=== PATIENT | male | born 1935 | race Caucasian/White ===

== ENCOUNTER → 2018-09-09 | Outpatient (CLI) | payer OTHER ==
[~2018-09-09] VITALS: Ht 177.8 cm; Wt 89.4 kg
[~2018-09-09] MED LIST: ATORVASTATIN CA40 MG PO; IRBESARTAN-HCT1 EAC1 PO; LANTUS SUBQ; NORVASC5 MG PO; NOVOLOG100 UNIT/1 SUBQ
--- NOTE | ~2018-09-09 | P ---
[facility] [place] [address] [place] [address] PROCEDURE REPORT Name: JOSE ROMAN Room #: [facility]#: [id number] Admission: 09/09/18 ������������������ Attend Phys: Dev Lebron MD Discharge: ������������������ Date of : 33 Report #: [id number] THIS REPORT FOR: //name// CC: Mukesh Lebron DATE OF SERVICE: 09/09/2018 OUTPATIENT UPPER ENDOSCOPY BRIEF HISTORY: The patient is an 83-year-old male known to me with a history of solid food dysphagia with recurrent symptoms. PREOPERATIVE DIAGNOSIS: Solid food dysphagia. POSTOPERATIVE DIAGNOSES: 1. Gastritis with erosions. 2. Patchy bulbar duodenitis. 3. Small hiatus hernia. 4. Grade A esophagitis. 5. Moderate Schatzki ring. MEDICATIONS: Deep sedation with propofol per anesthesia. SPECIMEN: Biopsies of gastritis. ESTIMATED BLOOD LOSS: 3 mL. PROCEDURE: EGD with biopsy and Mckeon dilation. FINDINGS: Prior to propofol sedation, procedure of upper endoscopy and dilation was discussed with the patient as well as potential risks and its complications. He indicates he understands and desires to proceed. DESCRIPTION OF PROCEDURE: With the patient in the left lateral decubitus position, the Olympus video endoscope was inserted in the cervical esophagus under direct vision without difficulty. Examination of this organ throughout its entire length revealed normal esophageal mucosa down into the distal esophagus. In the distal esophagus, several erosions were seen consistent with grade A erosive esophagitis. Intermittently, a moderate Schatzki ring was seen. There was also a small 2 cm sliding type hiatus hernia associated with the ring. Mucosa and hernia is unremarkable. There is no evidence of Glasgow mucosa. No mass lesions were seen. Overall, the distal esophagus had a benign appearance. The scope was advanced fully into the stomach, was examined on end view as well as retroflexed views. There was a pattern of gastritis or few [facility] [address] [place] [address] PROCEDURE REPORT Name: JOSE ROMAN [id number] Admission: 09/09/18 ������������������ Attend Phys: Dev Lebron MD Discharge: ������������������ Date of : 33 Report #: [id number] streaks of old blood in the stomach with active bleeding was not seen. No ulcers were seen. A significant amount of blood was not seen in the stomach. Upon retroflexion, no mass lesions were seen. The pylorus was normal. Examination of the duodenal bulb revealed a patchy bulbar duodenitis. The postbulbar duodenal sweep was inspected and noted to be unremarkable. At that point, the scope was slowly withdrawn and careful circumferential views confirmed the above findings. The patient tolerated the procedure well. Following procedure, he was dilated with passage of a 54-Estonian Mckeon dilator. There was no resistance. CONDITION OF THE PATIENT UPON DISCHARGE: Following the procedure, the patient was drowsy, arousable and will be discharged to home when fully ambulatory. INSTRUCTIONS TO THE PATIENT AND FAMILY AT THE TIME OF DISCHARGE: We will follow up on the pathology. Since he does have an esophagitis, we will have him start omeprazole 20 mg daily. If he does not have good control of his symptoms, he should return to the office for followup. If he does have good control of symptoms, after about 6-8 weeks, he can try to reduce the use of omeprazole to less than daily. He will return to see me on an as needed basis and to continue to follow up with Dr. Mukesh Renner. ��������������������������������������������� ���������������������������������������� By: ��������������������������������������������� 1002 2131 Dev Lebron MD /nt
--- NOTE | 2018-09-10 17:06 | PATH ---
[facility] [address] [place] [address] PATHOLOGY RPT PROCEDURE Name: PARISHEVAN Hillman Room #: REG CAROL Malone.#: [id number] ������������������ Admission: 09/09/18 ������������������ Date of : 33 Discharge: Report #: [id number] Path Case #: [id number] [facility] Accession Number: [id number] . 01 Material submitted: . stomach - BX GASTRITIS R/O H PYLORI . 01 Clinical history: . Pre-OP DX: Dysphagia Post-OP DX: Gastritis, esophagitis, esophageal ring . 02 Diagnosis: Gastric mucosa, gastritis R/O H. pylori, endoscopic biopsy: - Moderate reactive gastropathy. - Negative for intestinal metaplasia or atrophy. - Negative for Helicobacter pylori (properly controlled immunohistochemical stain performed). . (IUV:mitzi; 09/10/2018) QMS/09/10/2018 . 02 Electronically signed: . Stephanie Vee MD, Pathologist NPI- [id number] . 01 Gross description: . Received in formalin labeled "Parish Evan BX gastritis, rule out H. pylori," are 6 segments of canela soft tissue measuring 1.1 x 0.9 x 0.2 cm in aggregate dimensions and ranging from 0.1 to 0.4 cm in maximum dimension. The specimen is submitted entirely in cassette A1. (TSD; 09/09/2018) TOB/TOB . 02 Pathologist provided ICD-10: K31.9 . 02 CPT . 344100, M42834 Specimen Comment: A courtesy copy of this report has been sent to Specimen Comment: [phone], . Specimen Comment: Report sent to / DR PEREZ Performed at: 01 [facility] [address] [place] [address] [id number] MD Pierce Bernal MD Phone: [phone] Performed at: 02 [facility] [address] [place] [address] PATHOLOGY RPT PROCEDURE Name: EVAN ROMAN Room #: REG [facility]..#: [id number] ������������������ Admission: 09/09/18 ������������������ Date of : 33 Discharge: Report #: [id number] Path Case #: [id number] [address] [place], [place] [id number] MD Stephanie Vee MD Phone: [phone]
== END | disposition home or self-care (01) ==
LOC: GI 08:02
DX: K31.9 Disease of stomach and duodenum, unspecified (principal); K22.2 Esophageal obstruction; K20.9 Esophagitis, unspecified; K44.9 Diaphragmatic hernia without obstruction or gangrene; K29.80 Duodenitis without bleeding; I10 Essential (primary) hypertension; E78.5 Hyperlipidemia, unspecified; E11.9 Type 2 diabetes mellitus without complications; Z95.5 Presence of coronary angioplasty implant and graft; Z79.4 Long term (current) use of insulin; Z87.442 Personal history of urinary calculi; Z90.49 Acquired absence of other specified parts of digestive tract; Z98.890 Other specified postprocedural states; Z98.41 Cataract extraction status, right eye; Z98.42 Cataract extraction status, left eye; Z79.899 Other long term (current) drug therapy
CPT/HCPCS: 62110; 62900

== ENCOUNTER 2019-12-10 15:47 | Inpatient (IN) | payer OTHER ==
[~2019-12-10] VITALS: Ht 180.3 cm; Wt 90.5 kg
[2019-12-10 15:52] VITALS: BP 195/98
[2019-12-10 16:42] LABS: CALCIUM 9.2 mg/dL (8.5-10.1); CREATININE 1.1 mg/dL (0.7-1.3)
[2019-12-10 16:52] LABS: MAGNESIUM 2.1 mg/dL (1.8-2.4); TOTAL BILIRUBIN 1.4 mg/dL (0.2-1.0); TOTAL PROTEIN 7.3 g/dL (6.4-8.2); TROPONIN-I 0.26 ng/mL (<0.06)
[2019-12-10 17:31] LABS: HEMATOCRIT 44.3 % (42.0-52.0); MCH 30.1 pg (26.0-34.0); MCHC 33.9 g/dL (28.0-37.0); MCV 88.9 fL (80.0-100.0); RBC 4.98 mil/uL (4.50-6.00); WBC 5.9 thou/uL (4.0-11.0)
[2019-12-10 17:41] LABS: APTT 32.2 Seconds (24.5-32.8); PROTIME 10.4 Seconds (9.3-11.4)
[2019-12-10 17:47] VITALS: BP 176/88
[2019-12-10 18:03] VITALS: BP 171/87
[2019-12-10 18:15] VITALS: BP 182/99
[2019-12-10 18:22] LABS: ABSOLUTE NEUTROPHILS 4.2 thou/uL (1.4-8.2); ANISOCYTOSIS 1+; LARGE PLATELETS OCCASIONAL; POLYCHROMASIA OCCASIONAL
[2019-12-10 18:23] LABS: PLATELET COUNT 89 thou/uL (150-400)
[2019-12-11 00:27] VITALS: BP 181/91
--- NOTE | 2019-12-11 02:54 | NUR ---
PATIENT ASSESSED AND IS ALERT X 4. SKIN WARM AND DRY. DENIES ANY PAIN OR CHEST PAIN. NO SOA STATED. RESP EVEN AND UNLABORED. IV SITE IN RIGHT AC FLUSHES WELL. NEW FLUIDS STARTED PER ORDERS. HS MEDS GIVEN. WAS UPSET THAT NO ONE CAME IN HIS ROOM. AI WAS THERE AROUND 1999 TO ASSESSE HIM. SEEM FORGETFUL AT TIMES THIS SHIFT. VOIDS PER URINAL. NO SKIN ISSUES. DOES COMPLAIN OF VERTIGO WHEN HE STANDS TO VOID. NEEDS 1 PERSON ASSIST TO VOID. BS 231 RECEIVED 15 UNITS ORDERED. RIGHT AC SITE IS HEALTHY LOOKING. TAKING HEART HEALTHY DIET WELL. NEEDS TO REMEMBER LIKE CALL LIGHT FOR HELP. CONT PLAN OF CARE. DENIES ANY PAIN. LUNGS CTA.
--- NOTE | 2019-12-11 03:56 | NUR ---
PATIENT COMPLAINING OF RIGHT SHOULDER PAIN. NO CHEST PAIN STATED. HE THINKS IT FROM KEEPING HIS ARM STRAIGHT FOR THE IV. MORPHINE GIVEN.
[2019-12-11 04:45] VITALS: BP 122/66
[2019-12-11 07:36] VITALS: BP 133/63
--- NOTE | 2019-12-11 07:53 | NUR ---
PATIENT RESTING AND IS PAIN FREE. AT 0345 PATIENT COMPLAINING OF RIGHT SHOULDER PAIN. THEN ABOUT 0505 PATIENT HAVING CHEST PAIN. 2 NITRO GIVEN THEN CHEST PAIN RESIDED. FEELING BETTER NOW. THEN ABOUT 0542 CHEST PAIN STARTED AGAIN, SKIN WARM AND DRY. NO CHANGE IN TELE. STILL NSR. HAD 3 NITRO THEN PAIN WENT AWAY. SLEEPING AND THEN 0656 CHEST PAIN STARTED AGAIN AND RECEIVED 3 NITROS, 1ST 0656, 2ND 0701, 3RD 0706. STILL HAVING PAIN RATING ABOUT A 2-3. GAVE REPORT TO DAY RN AND AT 0745 PAIN HAS GONE COMPLETELY AWAY. FEELING BETTER NOW. CONT PLAN OF CARE.
--- NOTE | 2019-12-11 10:25 | EKG ---
[facility] [place] [address] [address] [place] [address] ELECTROCARDIOGRAM REPORT Name: JOSE ROMAN Room #: 203-P ADM IN M.R.#: [id number] Admission: 12/10/19 Attend Phys: Bronson Cortez MD Discharge: Date of : 33 Report #: [id number] THIS REPORT FOR: cc: Mukesh Renner MD, David A. MD Lundgren,Michael Clark MD [facility] ~ THIS REPORT FOR: //name// [facility] ED Test Date: 2019-12-10 Test Time: 15:55:41 Pat Name: JOSE ROMAN Department: Room: Formerly named [facility] Gender: M Application Systems Architect: BRICE : 1935 Requested By: Bull Sneed Order Number: [id number] MD: Michael López Measurements Intervals [place] Rate: 82 P: -12 RI: 144 QRS: 18 QRSD: 83 T: 126 QT: 322 QTc: 376 Interpretive Statements Sinus rhythm Atrial premature complex Nonspecific ST and T wave abnormality Compared to ECG 11/13/2000 09:26:38 Atrial premature complex(es) now present Sinus bradycardia no longer present nonspecific change in the ST and T wave segments Electronically Signed On 12-11-2019 10:24:54 CDT by Michael López [email or web address] <ELECTRONICALLY SIGNED> By: Michael López MD, FACC 12/11/19 1024 1555 1555 Michael López MD, FAC /EPI
--- NOTE | 2019-12-11 10:33 | EKG ---
[facility] [place] [address] [place] [address] ELECTROCARDIOGRAM REPORT Name: JOSE ROMAN Room #: 203- ADM IN M.R.#: [id number] Admission: 12/10/19 Attend Phys: Bronson Cortez MD Discharge: Date of : 33 Report #: [id number] THIS REPORT FOR: cc: Mukesh Renner MD, David A. MD Lundgren,Michael Clark MD [facility] ~ THIS REPORT FOR: //name// [facility] Test Date: 2019-12-11 Test Time: 09:14:11 Pat Name: JOSE ROMAN Department: Room: 203 Gender: M Last Chalker: ALESSANDRA : 1935 Requested By: Taiwo Abraham Order Number: [id number] MD: Michael López Measurements Intervals [place] Rate: 75 P: 1 KS: 157 QRS: 45 QRSD: 80 T: 110 QT: 388 QTc: 434 Interpretive Statements Sinus rhythm Borderline repolarization abnormality Poor R wave progression Compared to ECG 12/10/2019 15:55:41 No significant change was found Electronically Signed On 12-11-2019 10:33:05 CDT by Michael López [email or web address] <ELECTRONICALLY SIGNED> By: Michael López MD, [facility] 12/11/19 1033 0914 Michael López MD, [facility] /EPI
--- NOTE | 2019-12-11 12:34 | CATHLAB ---
[facility] [place] [address] [place] [address] INVASIVE PROCEDURE REPORT Name: JOSE ROMAN Room #: 203-P ADM IN M.R.#: [id number] Admission: 12/10/19 Attend Phys: Bronson Cortez MD Discharge: Date of : 33 Report #: [id number] THIS REPORT FOR: cc: Mukesh Renner MD, David A. MD Lundgren, Craig H. MD [facility] ~ APPROVED REPORT Study performed: 12/11/2019 10:30:34 Patient Details Patient Status: Out-Patient Room #: The patient is a 84 year-old male Event Personnel Michael López Repairer Cylinder Heads, Jeronimo Upton RN, Darshana Tomlinson, Tara Dockery RTR Monitor Procedures Performed Art Access - R femoral artery* Left Heart Cath w/or w/o Coronaries 3331026 [facility] Place w/wo Plasty Single CIRC 552089 67849 Initial Mod Sed Same Phys/QHP Gr5y 401226 08258 Mod Sed Same Phys/QHP Ea 931414 Hemostasis w/ Mynx Indication Non-STEMI (>6 hrs to = 12 hrs), Chest pain Procedure Narrative The patient was brought urgently to the Cardiac Catheterization Laboratory and was prepped and draped in a sterile manner. The Right Groin^ was infiltrated with 1% Lidocaine subcutaneous anesthesia. A PINNACLE 6FR Sheath #[id number] sheath was inserted into the RFA^. Coronary angiography was performed using coronary diagnostic catheters. The right coronary system was accessed and visualized with a JR4 catheter. The left coronary system was accessed and visualized with a JL4 catheter. The left ventricle was accessed and visualized with a PIGTAIL catheter. Left ventriculogram was performed in 30 degree projection. Closure device was deployed with a 6 Fr MYNXGRIP 6/7F #[id number]. The patient tolerated the procedure well and there were no complications associated with the procedure. There was no hematoma. Intraoperative Conscious Sedation Sedation start time: 105 Case end Time: [facility] [address] [place] [address] INVASIVE PROCEDURE REPORT Name: JESSIEJOSE Hillman Room #: 203-P [facility] IN [facility].#: [id number] Admission: 12/10/19 Attend Phys: Bronson Cortez MD Discharge: Date of : 33 Report #: [id number] 1202 Fentanyl 50 mcg Versed 1.5 mg Fluoro Time: 8.23 minutes Dose: DAP 7745.80 cGycm2 955 mGy Contrast Type and Amount: Omnipaque 235 ml Coronary Angiography The patient's coronary anatomy is right dominant. Diagnostic Cath Left Main Short, normal left main LAD Mild to moderate proximal LAD plaquing (30-40%) Previously placed mid LAD stent with mild intrastent plaquing Circumflex Nondominant but large circumflex comprised of a single bifurcating marginal branch OM1 OM1 exhibited a 99% mid vessel stenosis. Moderate 40-50% distal plaquing Right Coronary Large, dominant right coronary with minimal scattered plaquing R PDA Mild 10-20% mid PDA plaquing RPLV Large posterolateral branch with mild proximal plaquing Left Ventriculography The left ventricle is normal in size with normal contractility. The left ventricular ejection fraction is estimated to be 60-65%. Left ventricular wall motion abnormalities are not present. There is no mitral insufficiency. Hemodynamics The aortic pressure is 135/51 mmHg with a mean of 83 mmHg. The left ventricular pressure is 134/2 mmHg with a mean of mmHg. The left ventricular end diastolic pressure is 10 mmHg. PCI Technique Lesion Anticoagulation was achieved with Angiomax. Patient was preloaded with Plavix. Percutaneous coronary intervention was performed on the mid first marginal branch segment. The lesion stenosis prior to intervention was 99% with ARY 2 flow. A LAUNCHER 6FR EBU 3.5 #[id number] Guide Catheter was used to engage the ostium. A Luge Wire .014 x 182CM #[id number] Interventional Guidewire was used to cross the lesion. BALLOON DILATION A Balloon catheter Moprisephora RX 2.5 x 15 #[id number] was inserted and [facility] [address] [place] [address] INVASIVE PROCEDURE REPORT Name: JESSIEJOSE Hillman Room #: 203-P [facility] IN M.R.#: [id number] Admission: 12/10/19 Attend Phys: Bronson Cortez MD Discharge: Date of : 33 Report #: [id number] inflated up to 8.00atm for 22seconds. Repeat angiography revealed the following post-dilatation results: Moderate residual stenosis. STENT DEPLOYMENT A drug-eluting stent RESOLUTE SAMY RX 3.0 X 15 #[id number] was inserted and inflated up to 12.00atm for 30seconds. POST STENT DEPLOYMENT BALLOON DILATION A Balloon catheter TREK NC RX 3.0 X 12 #[id number] was inserted and inflated up to 18.00atm for 32seconds. Final angiography reveals 0 % stenosis with ARY 3 flow. Conclusion 1. Normal global and regional left ventricular systolic function. Ejection fraction 65% 2. Normal left main 3. Mild proximal and mid LAD plaquing. Patent, previously placed mid LAD stents 4. Critical first marginal branch stenosis stented with a 3.0 x 15mm Resolute stent, post dilated to 3.1mm 5. Dominant right coronary with mild scattered plaquing Recommendations Daily ASA with Plavix for at least one year Cardiac Rehabilitation Referral <ELECTRONICALLY SIGNED> By: Michael López MD, [facility] 12/11/19 1233 1233 1233 Michael López MD, FACC /INF
[2019-12-11 12:53] VITALS: BP 137/66
[2019-12-11 16:00] VITALS: BP 145/63
--- NOTE | 2019-12-11 18:04 | NUR ---
ASSUMED PATIENT CARE AT 0700. WENT TO [facility] AT 1030 AND BACK TO UNIT 1215. RIGHT GROIN NO HEMOTOMA. NO PAIM. VSS. PATIENT GETTING UP AT 1800. DENIES CHEST PAIN. PROGRESSING TOWARDS POC GOALS.
[2019-12-11 19:50] VITALS: BP 153/74
[2019-12-12 00:33] VITALS: BP 164/81
[2019-12-12 04:26] VITALS: BP 148/70
[2019-12-12 04:52] LABS: ALBUMIN 3.4 g/dL (3.4-5.0); CALCIUM 8.8 mg/dL (8.5-10.1); CREATININE 0.9 mg/dL (0.7-1.3); POTASSIUM 3.2 mmol/L (3.5-5.1); TOTAL BILIRUBIN 2.4 mg/dL (0.2-1.0); TOTAL PROTEIN 6.5 g/dL (6.4-8.2)
[2019-12-12 04:55] LABS: TROPONIN-I 1.05 ng/mL (<0.06)
--- NOTE | 2019-12-12 06:10 | NUR ---
Assumed pt care at 2330. Pt is alert and oriented. Pt is stable. Right groin site intact. Pt is stable through the night. Denies any pain. Scheduled morning meds administered to pt. Continue to monitor. No further needs at this time.
[2019-12-12 07:20] VITALS: BP 165/81
[2019-12-12] MEDS ORDERED: ASPIR 8181 MG PO (07:48)
[2019-12-12] MEDS ORDERED: LIPITOR40 MG PO (07:48)
[2019-12-12] MEDS ORDERED: CLOPIDOGREL75 MG PO (07:48)
[2019-12-12] MEDS ORDERED: METOPROLOL SUCC25 M1 PO (07:48)
[2019-12-12 11:10] VITALS: BP 135/60
--- NOTE | 2019-12-12 11:35 | NUR ---
Chart reviewed and case discussed with the care team. Dc home anticipated today with cardiology clearance. Vacation Guide spoke with the pt and his to screen for possible hh referral. The pt has a cardiac cath with stent placement yesterday. Pt is A&ox4 and indicates that he is indep, active and drives. His pcp is Dr. Mukesh Renner. He lives with his spouse in a assisted community indep apt [facility] He does not intend to be homebound at in today and he is up ad juli in his room. is supportive and able to assist with adl's and drive if needed. No cm interventions indicated. Care team updated.
--- NOTE | 2019-12-12 11:47 | 2DMMODE ---
[facility] [address] [place] [address] 2 D/M-MODE ECHOCARDIOGRAM Name: JOSE ROMAN Room #: 203-P ADM IN M.R.#: [id number] Admission: 12/10/19 Attend Phys: Bronson Cortez MD Discharge: Date of : 33 Report #: [id number] THIS REPORT FOR: cc: Mukesh Renner MD, David A. MD Lammoglia, Francisco J. MD ~ APPROVED REPORT Study performed: 12/12/2019 08:39:39 EXAM: Comprehensive 2D, Doppler, and color-flow Echocardiogram Patient Location: Bedside Room #: 203 Status: routine BSA: 2.08 HR: 74 bpm BP: 190/80 mmHg Rhythm: NSR Other Information Study Quality: Fair Indications Diabetes CAD Elevated Troponin Chest Pain Hypertension/HDD 2D Dimensions IVSd: 10.17 (7-11mm) LVOT Diam: 22.87 (18-24mm) LVDd: 49.57 mm PWd: 9.57 (7-11mm) Ascending Ao: 33.26 (22-36mm) LVDs: 33.00 (25-40mm) Aortic Root: 39.37 mm IVC: 17.00 mm Aortic Valve AoV Peak Reece.: 1.41 m/s AO Peak Gr.: 7.95 mmHg LVOT Max P.72 mmHg LVOT Max V: 1.09 m/s TESSIE Vmax: 3.16 cm2 Mitral Valve E/A Ratio: 0.8 [facility] [address] [place] [address] 2 D/M-MODE ECHOCARDIOGRAM Name: JOSE ROMAN Room #: 203-P ADM IN .R.#: [id number] Admission: 12/10/19 Attend Phys: Bronson Cortez MD Discharge: Date of : 33 Report #: [id number] MV Decel. Time: 252.89 ms MV E Max Reece.: 0.99 m/s MV A Reece.: 1.31 m/s MV PHT: 73.34 ms IVRT: 106.11 ms Pulmonary Valve PV Peak Reece.: 1.07 m/s PV Peak Gr.: 4.56 mmHg Pulmonary Vein P Vein S: 0.40 m/s P Vein A: 0.28 m/s P Vein D: 0.29 m/s P Vein A Dur.: 115.3 msec P Vein S/D Ratio: 1.38 Left Ventricle The left ventricle is normal size. There is normal LV segmental wall motion. There is normal left ventricular wall thickness. Left ventricular systolic function is normal. The left ventricular ejection fraction is within the normal range. LVEF is 55-60%. Grade I - abnormal relaxation pattern. Right Ventricle The right ventricle is normal size. The right ventricular systolic function is normal. Atria The left atrium size is normal. The right atrium size is normal. Aortic Valve The aortic valve is normal in structure. No aortic regurgitation is present. There is no aortic valvular stenosis. Mitral Valve The mitral valve is normal in structure. There is no mitral valve regurgitation noted. No evidence of mitral valve stenosis. Tricuspid Valve The tricuspid valve is normal in structure. There is no tricuspid valve regurgitation noted. Pulmonic Valve The pulmonary valve is normal in structure. There is no pulmonic valvular regurgitation. Great Vess[facility] [address] [place] [address] 2 D/M-MODE ECHOCARDIOGRAM Name: JESSIEJOSE Hillman Room #: 203-P [facility] IN ..#: [id number] Admission: 12/10/19 Attend Phys: Bronson Cortez MD Discharge: Date of : 33 Report #: [id number] The aortic root is normal in size. IVC is normal in size and collapses >50% with inspiration. Pericardium There is no pericardial effusion. <Conclusion> The left ventricle is normal size. LVEF is 55-60%. The aortic valve is normal in structure. The mitral valve is normal in structure. The tricuspid valve is normal in structure. The pulmonary valve is normal in structure. There is no pericardial effusion. <ELECTRONICALLY SIGNED> By: Vidal Groves MD 12/12/19 1147 1147 1147 Vidal Groves MD /INF
[2019-12-12] MEDS ORDERED: WELLBUTRIN SR150 MG PO (13:14)
[2019-12-12 13:26] VITALS: BP 135/60
--- NOTE | 2019-12-12 14:16 | NUR ---
ASSUMED CARE AT SHIFT CHANGE, ALERT AND ORIENTED X4. VSS AND AFEBRILE. DISCHARGE AND MEDICATION INSTRUCTIOND GIVEN TO PATIENT AND SPOUSE. PATIENT DISCHARGED HOME.
--- NOTE | 2019-12-13 16:00 | EKG ---
[facility] [place] [address] [place] [address] ELECTROCARDIOGRAM REPORT Name: JOSE ROMAN Room #: 203- DIS IN M.R.#: [id number] Admission: 12/10/19 Attend Phys: Bronson Cortez MD Discharge: 12/12/19 Date of : 33 Report #: [id number] THIS REPORT FOR: cc: Mukesh Renner MD, David A. MD Couchonnal, Luis F. MD ~ THIS REPORT FOR: //name// [facility] Test Date: 2019-12-11 Test Time: 13:11:40 Pat Name: JOSE ROMAN Department: Room: 203 Gender: M Date Puller: ALESSANDRA : 1935 Requested By: Michael López Order Number: [id number] MD: Taiwo Abraham Measurements Intervals [place] Rate: 71 P: -22 WI: 149 QRS: 32 QRSD: 85 T: 87 QT: 417 QTc: 454 Interpretive Statements Sinus rhythm Atrial premature complex Low voltage, precordial leads Nonspecific T abnormalities, lateral leads Baseline wander in lead(s) V2 Compared to ECG 12/11/2019 09:14:11 Atrial premature complex(es) now present Low QRS voltage now present T-wave abnormality now present Poor R-wave progression no longer present Electronically Signed On 12-13-2019 16:00:38 CDT by Taiwo Abraham [email or web address] <ELECTRONICALLY SIGNED> By: Taiwo Abraham MD 12/13/19 1600 10 10 Taiwo Abraham MD /EPI
--- NOTE | 2019-12-13 16:02 | EKG ---
[facility] [place] [address] [place] [address] ELECTROCARDIOGRAM REPORT Name: JOSE ROMAN Room #: 203-P DIS IN M.R.#: [id number] Admission: 12/10/19 Attend Phys: Bronson Cortez MD Discharge: 12/12/19 Date of : 33 Report #: [id number] THIS REPORT FOR: cc: Mukesh Renner MD, David A. MD Couchonnal, Luis F. MD ~ THIS REPORT FOR: //name// [facility] Test Date: 2019-12-12 Test Time: 07:10:50 Pat Name: JOSE ROMAN Department: Room: 203 Gender: M Consumer Education Specialist: ALESSADNRA : 1935 Requested By: Michael López Order Number: [id number] MD: Taiwo Abraham Measurements Intervals [place] Rate: 68 P: 22 NE: 145 QRS: 23 QRSD: 86 T: 118 QT: 389 QTc: 414 Interpretive Statements Sinus rhythm Anteroseptal infarct, age indeterminate Compared to ECG 12/11/2019 13:11:40 Myocardial infarct finding now present Atrial premature complex(es) no longer present T-wave abnormality no longer present Electronically Signed On 12-13-2019 16:02:10 CDT by Taiwo Abraham [email or web address] <ELECTRONICALLY SIGNED> By: Taiwo Abraham MD 12/13/19 1602 9 Taiwo Abraham MD /EPI
== END 2019-12-12 14:00 | disposition home or self-care (01) | DRG 247 ==
LOC: ER 15:47 → 2N 18:10
PROVIDERS: Emergency Medicine; Internal Medicine; ADMIT Internal Medicine; ATTEND Internal Medicine
PROC: B2111ZZ Fluoroscopy of Multiple Coronary Arteries using Low Osmolar Contrast (ICD-10-PCS; principal; 2019-12-11)
PROC: 4A023N7 Measurement of Cardiac Sampling and Pressure, Left Heart, Percutaneous Approach (ICD-10-PCS; principal; 2019-12-11)
PROC: B2151ZZ Fluoroscopy of Left Heart using Low Osmolar Contrast (ICD-10-PCS; principal; 2019-12-11)
PROC: 027034Z Dilation of Coronary Artery, One Artery with Drug-eluting Intraluminal Device, Percutaneous Approach (ICD-10-PCS; principal; 2019-12-11)
DX: I21.4 Non-ST elevation (NSTEMI) myocardial infarction (principal); E11.9 Type 2 diabetes mellitus without complications; I10 Essential (primary) hypertension; E78.5 Hyperlipidemia, unspecified; E78.00 Pure hypercholesterolemia, unspecified; M54.5 Low back pain; G47.33 Obstructive sleep apnea (adult) (pediatric); D69.6 Thrombocytopenia, unspecified; E87.6 Hypokalemia; G47.00 Insomnia, unspecified; N40.0 Benign prostatic hyperplasia without lower urinary tract symptoms; K59.00 Constipation, unspecified; I25.110 Atherosclerotic heart disease of native coronary artery with unstable angina pectoris; K29.70 Gastritis, unspecified, without bleeding; K25.9 Gastric ulcer, unspecified as acute or chronic, without hemorrhage or perforation; K29.80 Duodenitis without bleeding; K44.9 Diaphragmatic hernia without obstruction or gangrene; K20.9 Esophagitis, unspecified; K22.2 Esophageal obstruction; Z90.49 Acquired absence of other specified parts of digestive tract; Z95.5 Presence of coronary angioplasty implant and graft; Z79.4 Long term (current) use of insulin; Z87.442 Personal history of urinary calculi; Z79.899 Other long term (current) drug therapy
CPT/HCPCS: 10081

== ENCOUNTER → 2020-01-12 | Outpatient (CLI) | payer OTHER ==
[~2020-01-12] MED LIST changes: +ASPIR 8181 MG PO; +CLOPIDOGREL75 MG PO; +LIPITOR40 MG PO; +METOPROLOL SUCC25 M1 PO; +WELLBUTRIN SR150 MG PO
== END ==
LOC: SJCVC 15:21
PROVIDERS: ATTEND Internal Medicine Cardiovascular Disease
DX: I25.10 Atherosclerotic heart disease of native coronary artery without angina pectoris (principal); I10 Essential (primary) hypertension; E78.00 Pure hypercholesterolemia, unspecified; R94.31 Abnormal electrocardiogram [ECG] [EKG]; I25.5 Ischemic cardiomyopathy; E11.9 Type 2 diabetes mellitus without complications; G47.33 Obstructive sleep apnea (adult) (pediatric); Z79.4 Long term (current) use of insulin; Z79.899 Other long term (current) drug therapy

== ENCOUNTER 2020-01-31 06:39 | Emergency (ER) | payer OTHER ==
[~2020-01-31] VITALS: Ht 177.8 cm; Wt 87.5 kg
[2020-01-31 08:06] LABS: ANION GAP 9 mmol/L (7-16); BUN 12 mg/dL (7-18); CALCIUM 8.7 mg/dL (8.5-10.1); CHLORIDE 106 mmol/L (98-107); CO2 26 mmol/L (21-32); CREATININE 0.8 mg/dL (0.7-1.3); GLUCOSE 143 mg/dL (74-106); POTASSIUM 3.7 mmol/L (3.5-5.1); SODIUM 141 mmol/L (136-145)
[2020-01-31 08:16] LABS: ALBUMIN 3.9 g/dL (3.4-5.0); SGOT 19 U/L (15-37); SGPT 16 U/L (30-65); TOTAL BILIRUBIN 1.2 mg/dL (0.2-1.0); TROPONIN-I <0.06 ng/mL (<0.06)
[2020-01-31 08:20] LABS: HEMATOCRIT 40.6 % (42.0-52.0); HEMOGLOBIN 13.7 gm/dL (14.0-18.0); MCH 30.2 pg (26.0-34.0); MCHC 33.8 g/dL (28.0-37.0); MCV 89.3 fL (80.0-100.0); RBC 4.54 mil/uL (4.50-6.00); WBC 4.9 thou/uL (4.0-11.0)
[2020-01-31 09:54] VITALS: BP 177/71
[2020-01-31 10:45] LABS: ABSOLUTE NEUTROPHILS 3.1 thou/uL (1.4-8.2); LARGE PLATELETS OCCASIONAL; PLATELET COUNT 102 thou/uL (150-400); PLATELET ESTIMATE SLIGHTLY DECREASED
--- NOTE | 2020-01-31 10:55 | EKG ---
[facility] [place] [address] ELECTROCARDIOGRAM REPORT Name: JOSE ROMAN Room #: REG [facility]#: [id number] Admission: 01/31/20 Attend Phys: Discharge: Date of : 33 Report #: [id number] THIS REPORT FOR: cc: Mukesh Renner MD, David A. MD Santiago, Patrick MD [facility] ~ THIS REPORT FOR: //name// [facility] ED Test Date: 2020-01-31 Test Time: 07:42:23 Pat Name: JOSE ROMAN Department: Room: Gender: M Quality Assurance Qa Lab Analyst: : 1935 Requested By: Bull Sneed Order Number: [id number] MD: Gibran Trevino Measurements Intervals [place] Rate: 71 P: 39 W[place]: 160 QRS: 30 QRSD: 89 T: 56 QT: 406 QTc: 442 Interpretive Statements Sinus rhythm Borderline T abnormalities, lateral leads Compared to ECG 12/12/2019 07:10:50 T-wave abnormality now present Myocardial infarct finding no longer present Electronically Signed On 01-31-2020 10:55:30 CDT by Gibran Trevino [email or web address] <ELECTRONICALLY SIGNED> By: Gibran Trevino MD, FACC 01/31/20 1055 0742 0742 Gibran Trevino MD, [facility] /EPI
== END 2020-01-31 09:55 | disposition home or self-care (01) ==
LOC: ER 06:39
PROVIDERS: Emergency Medicine
DX: R06.02 Shortness of breath (principal); I25.10 Atherosclerotic heart disease of native coronary artery without angina pectoris; I10 Essential (primary) hypertension; E11.9 Type 2 diabetes mellitus without complications; E78.5 Hyperlipidemia, unspecified; Z95.1 Presence of aortocoronary bypass graft; Z90.49 Acquired absence of other specified parts of digestive tract; Z79.01 Long term (current) use of anticoagulants; Z79.82 Long term (current) use of aspirin; Z79.4 Long term (current) use of insulin; Z79.899 Other long term (current) drug therapy

== ENCOUNTER 2020-02-21 07:47 | Emergency (ER) | payer OTHER ==
[~2020-02-21] VITALS: Ht 177.8 cm; Wt 93.0 kg
[2020-02-21] MEDS ORDERED: PRASUGREL HCL10 MG PO (08:18)
[2020-02-21] MEDS ORDERED: ALPRAZOLAM0.5 M1 PO (08:18)
[2020-02-21] MEDS ORDERED: BUPROPION XL150 MG PO (08:18)
[2020-02-21] MEDS ORDERED: HYDROCHLOROTH12.5 M2 PO (08:19)
[2020-02-21] MEDS ORDERED: LIPITOR 40 MG T40 M1 PO (08:19)
[2020-02-21] MEDS ORDERED: OMEPRAZOLE 20 M20 M1 PO (08:19)
[2020-02-21] MEDS ORDERED: TAMSULOSIN HCL0.4 MG PO (08:19)
[2020-02-21 10:56] VITALS: BP 190/87
--- NOTE | 2020-02-21 14:30 | EKG ---
[facility] [place] [address] ELECTROCARDIOGRAM REPORT Name: JOSE ROMAN Room #: DEP [facility]#: [id number] Admission: 02/21/20 Attend Phys: Discharge: 02/21/20 Date of : 31 Report #: [id number] THIS REPORT FOR: cc: Mukesh Renner MD, David A. MD Santiago, Patrick MD [facility] ~ THIS REPORT FOR: //name// [facility] ED Test Date: 2020-02-21 Test Time: 10:23:43 Pat Name: JOSE ROMAN Department: Room: Gender: Road Mender: [facility] : 1935 Requested By: Edgardo Espinoza Order Number: [id number] MD: Gibran Trevino Measurements Intervals [place] Rate: 68 P: 40 CT: 161 QRS: 24 QRSD: 83 T: 63 QT: 394 QTc: 420 Interpretive Statements Sinus rhythm Atrial premature complex Compared to ECG 01/31/2020 07:42:23 Atrial premature complex(es) now present T-wave abnormality no longer present Electronically Signed On 02-21-2020 14:30:50 CDT by Gibran Trevino [email or web address] <ELECTRONICALLY SIGNED> By: Gibran Trevino MD, FACC 02/21/20 1430 1023 1023 Gibran Trevino MD, FACC /EPI
== END 2020-02-21 10:56 | disposition home or self-care (01) ==
LOC: ER 07:47
DX: F41.9 Anxiety disorder, unspecified (principal); F32.9 Major depressive disorder, single episode, unspecified; R06.02 Shortness of breath; I10 Essential (primary) hypertension; E11.9 Type 2 diabetes mellitus without complications; E78.5 Hyperlipidemia, unspecified; Z90.49 Acquired absence of other specified parts of digestive tract; Z79.899 Other long term (current) drug therapy; Z79.01 Long term (current) use of anticoagulants; Z79.4 Long term (current) use of insulin; Z79.82 Long term (current) use of aspirin

== ENCOUNTER → 2020-03-26 | Outpatient (CLI) | payer OTHER ==
[~2020-03-26] MED LIST changes: +ALPRAZOLAM0.5 M1 PO; +BUPROPION XL150 MG PO; +HYDROCHLOROTH12.5 M2 PO; +LIPITOR 40 MG T40 M1 PO; +OMEPRAZOLE 20 M20 M1 PO; +PLAVIX 75 MG TA75 MG PO; +PRASUGREL HCL10 MG PO; +SEROQUEL 25 MG25 MG PO; +TAMSULOSIN HCL0.4 MG PO; +TOPROL XL25 MG PO
== END ==
LOC: LAB 08:41
PROVIDERS: ATTEND Specialist
DX: Z01.812 Encounter for preprocedural laboratory examination (principal); Z20.828 Contact with and (suspected) exposure to other viral communicable diseases

== ENCOUNTER → 2020-03-28 | Outpatient (CLI) | payer OTHER ==
[~2020-03-28] VITALS: Ht 177.8 cm; Wt 90.7 kg
--- NOTE | 2020-03-28 17:27 | O ---
[facility] [place] [address] [place] [address] OPERATIVE REPORT Name: JOSE ROMAN Room #: REG [facility]#: [id number] Admission: 03/28/20 Attend Phys: Brice Cordero Discharge: Date of : 31 Report #: [id number] THIS REPORT FOR: cc: Mukesh Renner MD, David A. MD McElhinney, Christian C. MD ~ CC: Brice Renner DATE OF SERVICE: 03/28/2020 PROCEDURE PERFORMED: Upper endoscopy with esophageal dilation. HISTORY OF PRESENT ILLNESS: The patient is an 84-year-old male with a history of recurrent dysphagia, underwent an upper endoscopy with dilation by my partner, Dr. Lebron last August using a 54 Mckeon at the time. The patient had good results until recently now with recurrent dysphagia. DESCRIPTION OF PROCEDURE: The risks and benefits of the procedure were explained to the patient, those risks including but not limited to bleeding, perforation and the risk of sedation. He understood these risks and gave informed consent. Sedation was given using propofol per Anesthesia. Next, using a standard Olympus upper endoscope, the scope was placed in the patient's mouth and advanced under direct vision through the esophagus, stomach and into the second portion of the duodenum. The upper and mid esophagus was normal in appearance. In the distal esophagus at the GE junction, a mild Schatzki's ring was noted. The scope passed without any resistance. Upon entering the stomach, a small hiatal hernia was noted. Overall, the gastric mucosa was normal. The pylorus was normal and patent. The duodenal bulb, first and second portion were all normal. The scope was then brought back up into the patient's stomach and a Savary guidewire was inserted through the scope, leaving the guidewire in place as the scope was then withdrawn. Next, a 48-[place] Savary dilation of the esophagus was then performed without difficulty. The wire and dilator were removed. The scope was reintroduced into the patient's stomach. There was no evidence of mucosal tear after dilation. The scope was then withdrawn and the procedure terminated. The patient tolerated the procedure well. IMPRESSION: 1. Mild Schatzki's ring, status post dilation. 2. Small hiatal hernia. 3. Otherwise, normal upper endoscopy. RECOMMENDATIONS: 1. Observe the patient post-dilation. 2. Continue PPI therapy. [address] [address] OPERATIVE REPORT Name: JESSIEJOSE Rafy Room #: REG [facility]#: [id number] Admission: 03/28/20 Attend Phys: Brice Cordero Discharge: Date of : 31 Report #: [id number] Thank you for allowing me to participate in his care. <ELECTRONICALLY SIGNED> By: Brice Lind MD 03/28/20 1727 1056 1302 Brice Lind MD /shonna
== END | disposition home or self-care (01) ==
LOC: GI 08:04
PROVIDERS: ATTEND Specialist
DX: R13.10 Dysphagia, unspecified (principal); K22.2 Esophageal obstruction; K44.9 Diaphragmatic hernia without obstruction or gangrene; I10 Essential (primary) hypertension; E78.5 Hyperlipidemia, unspecified; E11.9 Type 2 diabetes mellitus without complications; Z98.890 Other specified postprocedural states; Z79.899 Other long term (current) drug therapy; Z79.4 Long term (current) use of insulin; Z87.442 Personal history of urinary calculi; Z90.49 Acquired absence of other specified parts of digestive tract
CPT/HCPCS: 62110; 62900

== ENCOUNTER → 2020-04-12 | Outpatient (CLI) | payer OTHER | LOC: LAB 10:52 | PROVIDERS: ATTEND Family Medicine | DX: Z20.828 Contact with and (suspected) exposure to other viral communicable diseases (principal) ==

== ENCOUNTER → 2020-05-31 | Outpatient (CLI) | payer OTHER | LOC: RAD 09:04 | PROVIDERS: ATTEND Internal Medicine | DX: J98.6 Disorders of diaphragm (principal); I10 Essential (primary) hypertension; E11.9 Type 2 diabetes mellitus without complications; G47.33 Obstructive sleep apnea (adult) (pediatric); E78.00 Pure hypercholesterolemia, unspecified; I25.5 Ischemic cardiomyopathy; I25.10 Atherosclerotic heart disease of native coronary artery without angina pectoris; Z98.890 Other specified postprocedural states ==

== ENCOUNTER → 2020-06-15 | Outpatient (CLI) | payer OTHER | LOC: LAB 11:54 | PROVIDERS: ATTEND Specialist | DX: Z01.812 Encounter for preprocedural laboratory examination (principal); Z20.822 Contact with and (suspected) exposure to COVID-19 ==

== ENCOUNTER → 2020-06-20 | Outpatient (CLI) | payer OTHER ==
--- NOTE | 2020-06-22 15:42 | PFR/MVV ---
[facility] [place] [address] [place] [address] PULMONARY FUNCTION MVV/REPORT Name: JOSE ROMAN [id number] Admission: 06/20/20 Attend Phys: Adtihya Barron MD Discharge: Date of : 31 Report #: [id number] THIS REPORT FOR: //name// >> SPIROMETRY: (BTPS) Height: 70 in cm Weight: 200 lbs kg Exam Date: 06/20/20 PRE-RX POST-RX PRED BEST %PRED BEST %PRED %CHG FVC LITERS . 3.94 . 2.55 . 65 . 3.04 . 77 . 19 FEV1 LITERS . 2.40 . 2.39 . 100 . 2.24 . 94 . -6 FEV1/FVC % . 64 . 94 . 146 . 74 . 115 . -21 ZJZ60-49% L/Sec . 1.89 . 3.88 . 205 . 1.13 . 60 . -71 PEF L/SEC . 7.67 . 6.18 . 81 . 6.32 . 82 . 2 FEF50/FIF50 UNITLESS . <1.00 . 2.38 . . 0.87 . . -63 MVV L/Min . 106 . 70 . 66 f 1/Min . . 110 . >> LUNG VOLUMES: (BTPS) PRE-RX POST-RX PRED AVG %PRED AVG %PRED %CHG VC Liters . 3.94 . 3.12 . 79 . . . TLC Liters . 6.26 . 8.18 . 131 . . . RV Liters . 2.83 . 5.06 . 179 . . . RV/TLC % . 47 . 62 . 133 . . . FRC [address] Liters . 3.57 . 6.06 . 170 . . . FRC N2 Liters . 3.57 . . . . . ERV Liters . 1.38 . 0.99 . 72 . . . IC Liters . 2.75 . 1.92 . 70 . . . >> DIFFUSION: DLCO ml/Min/mmHg . 18.5 . 27.5 . 149 . . . DL Breanna ml/Min/mmHg . 18.5 . 27.5 . 149 . . . DLCO/VA ml/Min/mmHg . 3.13 . 4.69 . 150 . . . VA Liters . . 5.86 . . . . COMMENTS: COMMENTS: >> RESISTANCE: [facility] [address] [place] [address] PULMONARY FUNCTION MVV/REPORT Name: JOSE ROMAN Room #: REG [facility].#: [id number] Admission: 06/20/20 Attend Phys: Adithya Barron MD Discharge: Date of : 31 Report #: [id number] PRE-RX PRED AVG %PRED Raw Total cmH20/L/Sec . . 2.52 . Raw Insp cmH20/L/Sec . . 1.20 . Raw Exp cmH20/L/Sec . . 1.64 . Raw cmH20/L/Sec . 1.26 . 1.53 . 122 Gaw L/Sec/cmH20 . 0.856 . 0.653 . 76 sRaw cmH20 Sec . 4.49 . 10.13 . 226 sGaw l/cmH20 Sec . 0.223 . 0.099 . 44 Vtq Liters . . 6.61 . # = OUTSIDE 95% CONFIDENCE INTERVAL CALIBRATION: PRED: 3.00 ACTUAL: EXP 3.01 INSP 3.02 [facility]-OL10-06 [facility] N-1804-4 >> INTERPRETATION/IMPRESSION: DATE OF SERVICE: 06/20/2020 Spirometric examination revealed normal flows. Following bronchodilators, there was significant improvement in the FVC at 19%. Moderate reduction in flows is also noted in the FEF 25-75% range. Lung volumes are normal. Diffusion capacity is increased, corrected for alveolar volume. Flow volume loop is normal. IMPRESSION: Normal pulmonary functions, there was significant response to the bronchodilators suggestive of reversible airways. Clinical correlation is recommended. <ELECTRONICALLY SIGNED> By: Jonah Self MD 06/22/20 1542 Jonah Self MD /nt
== END ==
LOC: PUL 09:58
PROVIDERS: ATTEND Internal Medicine
DX: J98.6 Disorders of diaphragm (principal)

== ENCOUNTER 2020-06-28 14:57 | Emergency (ER) | payer OTHER ==
[~2020-06-28] VITALS: Ht 177.8 cm; Wt 88.5 kg
[2020-06-28 15:37] LABS: URINE BILIRUBIN NEGATIVE (Negative); URINE BLOOD NEGATIVE (Negative); URINE CLARITY CLEAR; URINE COLOR YELLOW; URINE GLUCOSE-RANDOM* NEGATIVE (Negative); URINE KETONES NEGATIVE (Negative); URINE LEUKOCYTES-REFLEX NEGATIVE (Negative); URINE NITRITE-REFLEX NEGATIVE (Negative); URINE PROTEIN (DIPSTICK) NEGATIVE (Negative); URINE UROBILINOGEN 0.2 E.U./dl (0.2-1.0)
[2020-06-28 16:03] LABS: HEMATOCRIT 41.4 % (42.0-52.0); HEMOGLOBIN 13.8 gm/dL (14.0-18.0); MCH 28.7 pg (26.0-34.0); MCHC 33.2 g/dL (28.0-37.0); MCV 86.3 fL (80.0-100.0); RBC 4.8 mil/uL (4.50-6.00); RDW 14.7 % (10.5-14.5); WBC 8.2 thou/uL (4.0-11.0)
[2020-06-28 16:14] LABS: ANION GAP 10 mmol/L (7-16); BUN 12 mg/dL (7-18); CALCIUM 9.6 mg/dL (8.5-10.1); CHLORIDE 98 mmol/L (98-107); CO2 28 mmol/L (21-32); CREATININE 0.9 mg/dL (0.7-1.3); GLUCOSE 160 mg/dL (74-106); POTASSIUM 3.8 mmol/L (3.5-5.1); SODIUM 136 mmol/L (136-145)
[2020-06-28] MEDS ORDERED: CARBIDOPA-LEVO1 EAC9 PO (16:15)
[2020-06-28] MEDS ORDERED: ATIVAN0.5 M1 PO (16:18)
[2020-06-28 16:25] LABS: ALBUMIN 4.3 g/dL (3.4-5.0); SGOT 20 U/L (15-37); SGPT 14 U/L (16-63); TOTAL BILIRUBIN 1.7 mg/dL (0.2-1.0); TOTAL PROTEIN 7.1 g/dL (6.4-8.2); TROPONIN-I <0.06 ng/mL (<0.06)
[2020-06-28] MEDS ORDERED: PROAIR HFA8.5 GM INH (17:09)
[2020-06-28] MEDS ORDERED: BRIO INH (17:10)
[2020-06-28 17:45] VITALS: BP 169/82
--- NOTE | 2020-06-29 07:11 | EKG ---
[place] [address] [address] [address] ELECTROCARDIOGRAM REPORT Name: JOSE ROMAN Room #: [facility] Werner#: [id number] Admission: 06/28/20 Attend Phys: Discharge: 06/28/20 Date of : 31 Report #: [id number] [facility] ED Test Date: 2020-06-28 Test Time: 15:25:36 Pat Name: JOSE ROMAN Department: Room: Gender: M Singing Messenger: : 1935 Requested By: Mona Santacruz Order Number: [id number] MD: Gibran Trevino Measurements Intervals [place] Rate: 83 P: 51 ME: 161 QRS: 26 QRSD: 83 T: 89 QT: 355 QTc: 418 Interpretive Statements Sinus rhythm Borderline T abnormalities, lateral leads Compared to ECG 02/21/2020 10:23:43 T-wave abnormality now present Atrial premature complex(es) no longer present Electronically Signed On 06-29-2020 7:11:28 LOSS PREVENTION LEAD by Gibran Trevino [email or web address] <ELECTRONICALLY SIGNED> By: Gibran Trevino MD, [facility] 06/29/20 0711 1525 1525 Gibran Trevino MD, FACC /EPI
== END 2020-06-28 17:45 | disposition home or self-care (01) ==
LOC: ER 14:57
PROVIDERS: Nurse Practitioner Family
DX: F41.9 Anxiety disorder, unspecified (principal); I10 Essential (primary) hypertension; E11.9 Type 2 diabetes mellitus without complications; E78.5 Hyperlipidemia, unspecified; Z79.4 Long term (current) use of insulin; Z79.01 Long term (current) use of anticoagulants; Z79.899 Other long term (current) drug therapy; Z20.822 Contact with and (suspected) exposure to COVID-19

== ENCOUNTER → 2021-02-22 | Outpatient (CLI) | payer OTHER ==
[~2021-02-22] MED LIST changes: +ATIVAN0.5 M1 PO; +BRIO INH; +CARBIDOPA-LEVO1 EAC9 PO; +PROAIR HFA8.5 GM INH
== END ==
LOC: SJCVC 15:10
PROVIDERS: ATTEND Internal Medicine Cardiovascular Disease
DX: I25.10 Atherosclerotic heart disease of native coronary artery without angina pectoris (principal); I10 Essential (primary) hypertension; E78.00 Pure hypercholesterolemia, unspecified; E11.9 Type 2 diabetes mellitus without complications; G20 Parkinson's disease; F32.A Depression, unspecified; G47.30 Sleep apnea, unspecified; Z79.4 Long term (current) use of insulin; Z72.89 Other problems related to lifestyle; Z79.899 Other long term (current) drug therapy; Z95.818 Presence of other cardiac implants and grafts

== ENCOUNTER → 2021-04-17 | Outpatient (CLI) | payer OTHER | LOC: RAD 10:08 | PROVIDERS: ATTEND Family Medicine | DX: K44.9 Diaphragmatic hernia without obstruction or gangrene (principal); R13.10 Dysphagia, unspecified ==